=== PATIENT | female | born 1955 | race Caucasian/White ===

== ENCOUNTER 2016-03-14 14:10 | Inpatient (IN) | payer MEDICAID, OTHER ==
[~2016-03-14] VITALS: Ht 152.4 cm; Wt 57.0 kg
[2016-07-17] VITALS (11 sets, daily range): BP systolic 85–102; BP diastolic 23–71; PULSE 69–118; RESP 18–22; Ht 152.4 cm; Wt 57.0 kg
[2016-07-17] MEDS ORDERED: SIMV40TA2 PO (14:20)
--- NOTE | 2016-07-17 14:43 | HPN ---
Date/Time of Note Date/Time of Note DATE: 07/17/16 TIME: 14:42 Interval H&P Admission Note Pt. seen H&P reviewed: No system changes MARIO ALBERTO VEGA MD Jul 17, 2016 14:42
[2016-07-17] MEDS ORDERED: METHYLENE BLUE 10 MG/ML VIAL ONE (15:30)
[2016-07-17] MEDS ORDERED: MIDAZOLAM 1 MG/ML 2 ML INJ ONE (15:58)
[2016-07-17] MEDS ORDERED: morphine SULFATE/PF (10 MG/10 ML) INJ ONE (15:59)
[2016-07-17] MEDS ORDERED: MEPERIDINE 25 MG INJ IV PRN (17:00)
[2016-07-17] MEDS ORDERED: NALOXONE (0.4 MG/ML) INJ IV PRN (17:00)
[2016-07-17] MEDS ORDERED: HYDROmorphONE (0.2 MG/ML) 10ML SYG IV PRN ×2 (17:00)
[2016-07-17] MEDS ORDERED: ONDANSETRON 4 MG INJ IV PRN ×2 (17:00→21:00)
[2016-07-17] MEDS ORDERED: FENTAnyl 50 MCG/ML VIAL IV PRN (17:00)
[2016-07-17] MEDS ORDERED: PHENYLephrine (100 MCG/ML) 5ML SYG ONE (18:44)
[2016-07-17] MEDS ORDERED: THROMBIN 5000 UNIT VIAL ONE (19:11)
[2016-07-17] MEDS ORDERED: NEOSTIGMINE 3 MG/3 ML SYRINGE ONE (19:35)
[2016-07-17] MEDS ORDERED: LIDOCAINE 2% (SDV) 5 ML INJ ONE (19:35)
[2016-07-17] MEDS ORDERED: CEFAZOLIN 1 GM INJ ONE (19:35)
[2016-07-17] MEDS ORDERED: GLYCOPYRROLATE 0.4 MG INJ ONE (19:35)
[2016-07-17] MEDS ORDERED: metroNIDAZOLE 500 MG/NS (PMX) 100 ML IVPB ONE (19:35)
[2016-07-17] MEDS ORDERED: ROCURONIUM 50 MG INJ ONE (19:35)
[2016-07-17] MEDS ORDERED: ETOMIDATE 20 MG INJ ONE (19:35)
[2016-07-17] MEDS ORDERED: DEXAMETHASONE 4 MG/ML 1 ML INJ ONE (19:36)
[2016-07-17 20:58] LABS: ADD SCAN DIFF NO
[2016-07-17 20:59] LABS: BASOPHILS % 0.2 % (0.0-2.0); EOSINOPHILS # 0.1 10^3/ul (0.0-0.5); EOSINOPHILS % 0.9 % (0.0-7.0); HEMATOCRIT 30.8 % (37.0-47.0); HEMOGLOBIN 10.3 g/dl (12.0-16.0); LYMPHOCYTES # 2.6 10^3/ul (0.8-2.9); LYMPHOCYTES % 20.9 % (15.0-51.0); MEAN CORPUSCULAR HGB CONC 33.4 g/dl (32.0-37.0); MEAN CORPUSCULAR VOLUME 89.8 fl (82.0-101.0); MONOCYTE # 0.5 10^3/ul (0.3-0.9); MONOCYTES % 3.7 % (0.0-11.0); NEUTROPHIL # 9.2 10^3/ul (1.6-7.5); PLATELET COUNT 148 10^3/UL (140-415); RED BLOOD COUNT 3.43 10^6/ul (4.20-5.40); RED CELL DISTRIBUTION WIDTH 12.8 % (11.5-14.5); WHITE BLOOD COUNT 12.4 10^3/ul (4.8-10.8)
[2016-07-17] MEDS ORDERED: POTASSIUM CHLORIDE 20 MEQ in DEXTROSE 5%-LR 1,000 ML IV SCH (21:00)
[2016-07-17] MEDS ORDERED: morphine 2 MG INJ IV PRN (21:00)
[2016-07-17 21:08] LABS: ALBUMIN 2.4 g/dl (3.3-4.9)
[2016-07-17 21:09] LABS: INR 1.16; PROTIME 14.8 Sec (12.2-14.2); PT RATIO 1.2
[2016-07-17 21:10] LABS: BILIRUBIN,INDIRECT 0.8 mg/dl (0-1.1); BILIRUBIN,TOTAL 0.8 mg/dl (0.2-1.3); CREATININE 0.39 mg/dl (0.44-1.00); PARTIAL THROMBOPLASTIN TIME 25.5 Sec (25.0-35.0)
[2016-07-17 21:11] LABS: ALBUMIN/GLOBULIN RATIO 1.14; CALCIUM 8.5 mg/dl (8.4-10.2); POTASSIUM 2.4 mmol/L (3.5-5.1); TOTAL PROTEIN 4.5 g/dl (6.1-8.1)
[2016-07-17] MEDS ORDERED: POTASSIUM CHLORIDE 150 ML ONE (21:29)
[2016-07-17] MEDS: POTASSIUM CHLORIDE 50 ML IVPB PRN ×2 (21:40→21:41)
[2016-07-17] MEDS ORDERED: traMADol 50 MG TAB PO PRN (22:00)
[2016-07-17] MEDS: CEFAZOLIN 1 GM/50 ML (PMX) 50 ML IVPB SCH (22:11)
[2016-07-17] MEDS: D5-LR + KCL 20 MEQ 1,000 ML IV SCH (22:11)
[2016-07-17] MEDS: FAMOTIDINE 20 MG INJ IV SCH (22:16)
[2016-07-17] MEDS: traMADol 50 MG TAB PO PRN (22:55)
[2016-07-18] VITALS (39 sets, daily range): BP systolic 70–103; BP diastolic 34–64; PULSE 88–121; RESP 9–33
[2016-07-18] MEDS: D5-LR + KCL 20 MEQ 1,000 ML IV SCH ×5 (04:50→23:30)
[2016-07-18] MEDS: CEFAZOLIN 1 GM/50 ML (PMX) 50 ML IVPB SCH ×3 (05:49→21:57)
[2016-07-18 06:31] LABS: ADD SCAN DIFF NO
[2016-07-18 06:56] LABS: ALBUMIN 2.6 g/dl (3.3-4.9); POTASSIUM 3.8 mmol/L (3.5-5.1)
[2016-07-18 06:58] LABS: BILIRUBIN,INDIRECT 0.4 mg/dl (0-1.1); BILIRUBIN,TOTAL 0.4 mg/dl (0.2-1.3); CREATININE 0.47 mg/dl (0.44-1.00); INR 1.13; PROTIME 14.5 Sec (12.2-14.2); PT RATIO 1.1
[2016-07-18 06:59] LABS: ALBUMIN/GLOBULIN RATIO 1.23; CALCIUM 8.1 mg/dl (8.4-10.2); TOTAL PROTEIN 4.7 g/dl (6.1-8.1)
[2016-07-18 07:02] LABS: ABNORMAL IP MESSAGE 1; BASOPHILS % 0.1 % (0.0-2.0); HEMATOCRIT 34.7 % (37.0-47.0); HEMOGLOBIN 11.6 g/dl (12.0-16.0); LYMPHOCYTES # 0.4 10^3/ul (0.8-2.9); LYMPHOCYTES % 2.4 % (15.0-51.0); MEAN CORPUSCULAR HEMOGLOBIN 30.5 pg (29.0-33.0); MEAN CORPUSCULAR HGB CONC 33.4 g/dl (32.0-37.0); MEAN CORPUSCULAR VOLUME 91.3 fl (82.0-101.0); MEAN PLATELET VOLUME 10.8 fl (7.4-10.4); MONOCYTE # 0.4 10^3/ul (0.3-0.9); MONOCYTES % 2.5 % (0.0-11.0); NEUTROPHILS % 94.5 % (39.0-77.0); PLATELET COUNT 152 10^3/UL (140-415); RED CELL DISTRIBUTION WIDTH 13.6 % (11.5-14.5); WHITE BLOOD COUNT 16.9 10^3/ul (4.8-10.8)
--- NOTE | 2016-07-18 07:09 | CONS ---
Date/Time of Note Date/Time of Note DATE: 07/18/16 TIME: 07:08 Assessment/Plan Assessment/Plan Additional Assessment/Plan 1) POD #1 s/p LSH/BSO by ciera Farias - I suspect patient will be discharged tomorrow or the next day. At this point there is no medical reason that requires her to stay in the hospital. Barring a change in her medical condition, she may be safely discharged home when she is ready from a surgical standpoint. No medical intervention needed at this time. 2) Nausea, mild - Patient declines an antiemetic at this time; Thank you for allowing our team the pleasure of co-managing your patient. Consultation Date/Type/Reason Admit Date/Time Jul 17, 2016 at 13:31 Date of Consultation: Jul 18, 2016 Type of Consultation: Internal Medicine Reason for Consultation Post-Operative Patient, Routine Medical Evaluation and Management Referring Provider: MARIO ALBERTO VEGA MD Hx of Present Illness This is a 61 year old female with an unremarkable pastmedical history who was admitted to the hospital yesterday afternoon, as planned, and underwent a LSH/ BSO. Patient is sleeping comfortably in the ICU, her daughter is resting in a chair next to her. Patient is roused easily and has no complaints or concerns other than mild nausea, minimal surgical pain and wondering when she will be able to go home. She declines any medication for nausea and is not interested in any pain medication. I told patient that Dr. Garcia decide when she is ready to go home from a surgical standpoint. From a medical standpoint, she is ready to go home at any time. She has no fever, chills, headache and she has not vomited or had diarrhea. General: Admits: Denies: Fever, Chills Eyes: Admits: Denies: Blurry Vision, Double Vision HENT: Admits: Denies: Ear Pain/Pressure, Runny/Stuffy Nose, Sore Throat Cardiovascular: Admits: Denies: Chest Pain, Palpitations, Leg Swelling Pulmonary: Admits: Denies: Cough, Wheeze, Shortness of Breath Gastrointestinal: Admits: Abdominal Pain, Nausea, Denies: Vomiting, Diarrhea Urogenital: Admits: Denies: Burning with Urination, Urinary Frequency Musculoskeletal: Admits: Denies: Joint Pain, Joint Swelling, Muscle Pain Neurological: Admits: Denies: Headache, Dizziness, Numbness, Tingling, Shooting Pains Integumentary: Admits: Denies: Rash, Itch Past Medical History Medical History: no pertinent history Past Surgical History LSH/VSO on 07/17/16 Social History Smoking Status: Never smoker Exam/Review of Systems Vital Signs Vitals Vital Signs Date Time Temp Pulse Resp B/P Pulse Ox O2 Delivery O2 Flow Rate FiO2 07/18/16 06:00 100 24 95/55 96 Nasal Cannula 2.0 07/18/16 04:00 97.5 Intake and Output 07/17/16 07/17/16 07/18/16 15:00 23:00 07:00 Intake Total 3180 ml 1715 ml Output Total 1435 ml 575 ml Balance 1745 ml 1140 ml Exam General: 61 year old, Yoruba speaking woman, sleeping comfortably in bed reouses easily to her name, She is in no acute distress Eyes: Sclera White, EOMI HENT: Normocephalic/Atraumatic, External Ears/Nose Normal, Moist Mucus Membranes Neck: Supple, Trachea Midline Cardiovascular: Normal Rate, Normal Rhythm, Normal S1 and S2, No Murmur, No Extra Sounds Pulmonary: Clear to Auscultation Bilaterally, Normal Respiratory Effort, No Rales, Rhonchi or Wheezes Gastrointestinal: Normoactive Bowel Sounds, Soft, Mild Tendermess, no distentio., No Hepatosplenomegaly Appreciated, No Pulsatile Masses Urogenital: Deferred Musculoskeletal: Normal Muscle Bulk and Tone Neurological: CN II - XII Grossly Intact, Non-Focal, Speech Normal Integumentary: Normal Moisture and Temperature, Good Turgor, No Jaundice, No Rash Lymphatic: No Cervical Lymphadenopathy Psychiatric: Appropriate Mood and Affect, Good Eye Contact Results Result Diagram: 07/17/16205407/18/16 0530 Results 24 hrs Laboratory Tests Test 07/17/16 20:55 07/18/16 05:30 White Blood Count 12.4 H Red Blood Count 3.43 L Hemoglobin 10.3 L Hematocrit 30.8 L Mean Corpuscular Volume 89.8 Mean Corpuscular Hemoglobin 30.0 Mean Corpuscular Hemoglobin Concent 33.4 Red Cell Distribution Width 12.8 Platelet Count 148 Mean Platelet Volume 10.0 Neutrophils % 74.0 Lymphocytes % 20.9 Monocytes % 3.7 Eosinophils % 0.9 Basophils % 0.2 Nucleated Red Blood Cells % 0.0 Neutrophils # 9.2 H Lymphocytes # 2.6 Monocytes # 0.5 Eosinophils # 0.1 Basophils # 0.0 Nucleated Red Blood Cells # 0.0 Prothrombin Time 14.8 H 14.5 H Prothrombin Time Ratio 1.2 1.1 INR International Normalized Ratio 1.16 1.13 Activated Partial Thromboplast Time 25.5 Sodium Level 141 143 Potassium Level 2.4 *L 3.8 Chloride Level 102 106 Carbon Dioxide Level 30 25 Anion Gap 11 16 Blood Urea Nitrogen 8 7 Creatinine 0.39 L 0.47 Glucose Level 189 259 H Calcium Level 8.5 8.1 L Total Bilirubin 0.8 0.4 Direct Bilirubin 0.00 0.00 Indirect Bilirubin 0.8 0.4 Aspartate Amino Transf (AST/SGOT) 19 25 Alanine Aminotransferase (ALT/SGPT) 26 27 Alkaline Phosphatase 50 46 Total Protein 4.5 L 4.7 L Albumin 2.4 L 2.6 L Globulin 2.10 2.10 Albumin/Globulin Ratio 1.14 1.23 Medications Medications Current Medications Naloxone HCl (Narcan) 0.2 mg Q2M PRN IV FOR RESP RATE 8 OR LESS; Start at 17:00 Ondansetron HCl 4 mg 4 mg Q6H PRN IV NAUSEA AND/OR VOMITING Last administered on 07/17/16 21:41; Admin Dose 4 MG; Start 07/17/16 at 21:00 Cefazolin Sodium (Ancef 1 Gm/50 ml (Pmx)) 50 ml @ 100 mls/hr Q8 IVPB Last administered on 07/18/16 05:49; Admin Dose 100 MLS/HR; Start 07/17/16 at 22:00 ; Stop 07/18/16 at 23:00 Morphine Sulfate (morphine) 1 mg Q3H PRN IV PAIN; Start 07/17/16 at 21:00 Famotidine 20 mg 20 mg BID IV Last administered on 07/17/16 22:16; Admin Dose 20 MG; Start 07/17/16 at 22:00 Potassium Cl/ Dextrose/Lact Ringer's (D5-Lr + KCl 20 Meq) 1,000 ml @ 150 mls/ hr Q6H40M IV Last administered on 07/18/16 06:00; Admin Dose 150 MLS/HR; Start 07/17/16 at 22:00 Tramadol HCl (Ultram) 50 mg Q6H PRN PO PAIN Last administered on 07/17/16 22: 55; Admin Dose 50 MG; Start 07/17/16 at 22:00 STACY HYLTON 24, 2017 07:09
[2016-07-18] MEDS: FAMOTIDINE 20 MG INJ IV SCH ×2 (10:37→20:21)
--- NOTE | 2016-07-18 11:14 | PN ---
Date/Time of Note Date/Time of Note DATE: 07/18/16 TIME: 11:07 Assessment/Plan VTE Prophylaxis VTE Prophylaxis Intervention: SCD's Lines/Catheters IV Catheter Type (from Nrs): Peripheral IV Urinary Cath still in place: Yes Reason Cath still needed: other (indicate) Assessment/Plan Chief Complaint/Hosp Course Assessment and plan 1) PMB and prolapse : POD #1 s/p LSH/BSO by , stable -Continue postsurgical care, advance diet as per surgery recommendations [facility] to [facility] 2) hypokalemia, repleted 3) Nausea, mild Resolved We will continue monitor patient closely for recommendation management treatment as clinical course Plan to discharge home tomorrow if cleared by VENEER SORTER Problems: Subjective 24 Hr Interval Summary Free Text/Dictation Patient denies of any chest pain or shortness of breath Minimal abdominal discomfort at surgical site No nausea vomiting or diarrhea No BM or flatus Exam/Review of Systems Vital Signs Vitals Vital Signs Date Time Temp Pulse Resp B/P Pulse Ox O2 Delivery O2 Flow Rate FiO2 07/18/16 10:33 98 24 97 07/18/16 10:00 94/47 Room Air 07/18/16 08:00 98.1 07/18/16 06:00 2.0 Intake and Output 07/17/16 07/17/16 07/18/16 15:00 23:00 07:00 Intake Total 3180 ml 1715 ml Output Total 1435 ml 575 ml Balance 1745 ml 1140 ml Exam General: The patient is well-developed, Not in acute distress. HEENT: Atraumatic, normocephalic. The pupils are equal and round . Neck: Supple with full range of motion. Chest: Normal expansion of the thorax during inspiration Lungs: Clear to auscultation bilaterally Heart: Normal S1-S2, Regular rhythm and rate. Abdomen: Soft , nontender, nondistended , bowel sounds are present. Surgical site is dry and clean Extremities: Normal to inspection, no edema no cyanosis Neurologic: Normal mental status,The patient is awake, alert and oriented . Results Result Diagram: 07/18/16 0530 07/18/16 0830 Results 24 hrs Laboratory Tests Test 07/17/16 20:55 07/18/16 05:30 07/18/16 08:30 White Blood Count 12.4 H 16.9 #H Red Blood Count 3.43 L 3.80 L Hemoglobin 10.3 L 11.6 L Hematocrit 30.8 L 34.7 L Mean Corpuscular Volume 89.8 91.3 Mean Corpuscular Hemoglobin 30.0 30.5 Mean Corpuscular Hemoglobin Concent 33.4 33.4 Red Cell Distribution Width 12.8 13.6 Platelet Count 148 152 Mean Platelet Volume 10.0 10.8 H Neutrophils % 74.0 94.5 H Lymphocytes % 20.9 2.4 L Monocytes % 3.7 2.5 Eosinophils % 0.9 0.0 Basophils % 0.2 0.1 Nucleated Red Blood Cells % 0.0 0.0 Neutrophils # 9.2 H 16.0 H Lymphocytes # 2.6 0.4 L Monocytes # 0.5 0.4 Eosinophils # 0.1 0.0 Basophils # 0.0 0.0 Nucleated Red Blood Cells # 0.0 0.0 Prothrombin Time 14.8 H 14.5 H Prothrombin Time Ratio 1.2 1.1 INR International Normalized Ratio 1.16 1.13 Activated Partial Thromboplast Time 25.5 Sodium Level 141 143 Potassium Level 2.4 *L 3.8 4.3 Chloride Level 102 106 Carbon Dioxide Level 30 25 Anion Gap 11 16 Blood Urea Nitrogen 8 7 Creatinine 0.39 L 0.47 Glucose Level 189 259 H Calcium Level 8.5 8.1 L Total Bilirubin 0.8 0.4 Direct Bilirubin 0.00 0.00 Indirect Bilirubin 0.8 0.4 Aspartate Amino Transf (AST/SGOT) 19 25 Alanine Aminotransferase (ALT/SGPT) 26 27 Alkaline Phosphatase 50 46 Total Protein 4.5 L 4.7 L Albumin 2.4 L 2.6 L Globulin 2.10 2.10 Albumin/Globulin Ratio 1.14 1.23 Medications Medications Current Medications Naloxone HCl (Narcan) 0.2 mg Q2M PRN IV FOR RESP RATE 8 OR LESS; Start at 17:00 Ondansetron HCl 4 mg 4 mg Q6H PRN IV NAUSEA AND/OR VOMITING Last administered on 07/17/16 21:41; Admin Dose 4 MG; Start 07/17/16 at 21:00 Cefazolin Sodium (Ancef 1 Gm/50 ml (Pmx)) 50 ml @ 100 mls/hr Q8 IVPB Last administered on 07/18/16 05:49; Admin Dose 100 MLS/HR; Start 07/17/16 at 22:00 ; Stop 07/18/16 at 23:00 Morphine Sulfate (morphine) 1 mg Q3H PRN IV PAIN; Start 07/17/16 at 21:00 Famotidine 20 mg 20 mg BID IV Last administered on 07/18/16 10:37; Admin Dose 20 MG; Start 07/17/16 at 22:00 Potassium Cl/ Dextrose/Lact Ringer's (D5-Lr + KCl 20 Meq) 1,000 ml @ 100 mls/ hr Q10H IV Last administered on 07/18/16 06:00; Admin Dose 150 MLS/HR; Start 07/17/16 at 22:00 Tramadol HCl (Ultram) 50 mg Q6H PRN PO PAIN Last administered on 07/17/16 22: 55; Admin Dose 50 MG; Start 07/17/16 at 22:00 Hydroxyzine HCl (Atarax) 10 mg Q6H PRN PO ITCHING; Start 07/18/16 at 11:30; Status MARIA DOLORES DO MD Jul 18, 2016 11:14
[2016-07-18] MEDS ORDERED: hydrOXYzine HCL 10 MG TAB PO PRN (11:30)
[2016-07-18] MEDS ORDERED: SOD CHLORIDE 0.9% 1,000 ML IV ONE (13:00)
[2016-07-18] MEDS: traMADol 50 MG TAB PO PRN (19:33)
--- NOTE | 2016-07-18 20:23 | PN ---
Date/Time of Note Date/Time of Note DATE: 07/18/16 TIME: 20:16 Assessment/Plan VTE Prophylaxis VTE Prophylaxis Intervention: SCD's Lines/Catheters IV [facility] Peripheral IV Urinary Cath still in place: Yes Assessment/Plan Chief Complaint/Hosp Course symptomatic pelvic relaxation, ureteral stricture Problems: Assessment/Plan A- doing well other than some vertigo and not able OOB. Awaiting better bowel fct P- Mobilize and await bowel fct. If symptoms remain consider cardiac eval. Start bladder training and d/c a.m Subjective 24 Hr Interval Summary Free Text/Dictation S-Feels comfortable but slightly uneasy when OOB O- Resp- clear CVS- NSR Abd- soft nt clean Ext- nt no edema A- doing well other than some vertigo and not able OOB. Awaiting better bowel fct P- Mobilize and await bowel fct. If symptoms remain consider cardiac eval. Start bladder training and d/c a.m Exam/Review of Systems Vital Signs Vitals Vital Signs Date Time Temp Pulse Resp B/P Pulse Ox O2 Delivery O2 Flow Rate FiO2 07/18/16 18:00 99 15 98/49 98 Room Air 07/18/16 08:00 98.1 07/18/16 06:00 2.0 Intake and Output 07/17/16 07/17/16 07/18/16 15:00 23:00 07:00 Intake Total 3180 ml 1715 ml Output Total 1435 ml 575 ml Balance 1745 ml 1140 ml Results Result Diagram: 07/18/16 0530 07/18/16 0830 Results 24 hrs Laboratory Tests Test 07/17/16 20:55 07/18/16 05:30 07/18/16 08:30 White Blood Count 12.4 H 16.9 #H Red Blood Count 3.43 L 3.80 L Hemoglobin 10.3 L 11.6 L Hematocrit 30.8 L 34.7 L Mean Corpuscular Volume 89.8 91.3 Mean Corpuscular Hemoglobin 30.0 30.5 Mean Corpuscular Hemoglobin Concent 33.4 33.4 Red Cell Distribution Width 12.8 13.6 Platelet Count 148 152 Mean Platelet Volume 10.0 10.8 H Neutrophils % 74.0 94.5 H Lymphocytes % 20.9 2.4 L Monocytes % 3.7 2.5 Eosinophils % 0.9 0.0 Basophils % 0.2 0.1 Nucleated Red Blood Cells % 0.0 0.0 Neutrophils # 9.2 H 16.0 H Lymphocytes # 2.6 0.4 L Monocytes # 0.5 0.4 Eosinophils # 0.1 0.0 Basophils # 0.0 0.0 Nucleated Red Blood Cells # 0.0 0.0 Prothrombin Time 14.8 H 14.5 H Prothrombin Time Ratio 1.2 1.1 INR International Normalized Ratio 1.16 1.13 Activated Partial Thromboplast Time 25.5 Sodium Level 141 143 Potassium Level 2.4 *L 3.8 4.3 Chloride Level 102 106 Carbon Dioxide Level 30 25 Anion Gap 11 16 Blood Urea Nitrogen 8 7 Creatinine 0.39 L 0.47 Glucose Level 189 259 H Calcium Level 8.5 8.1 L Total Bilirubin 0.8 0.4 Direct Bilirubin 0.00 0.00 Indirect Bilirubin 0.8 0.4 Aspartate Amino Transf (AST/SGOT) 19 25 Alanine Aminotransferase (ALT/SGPT) 26 27 Alkaline Phosphatase 50 46 Total Protein 4.5 L 4.7 L Albumin 2.4 L 2.6 L Globulin 2.10 2.10 Albumin/Globulin Ratio 1.14 1.23 Medications Medications Current Medications Naloxone HCl (Narcan) 0.2 mg Q2M PRN IV FOR RESP RATE 8 OR LESS; Start at 17:00 Ondansetron HCl 4 mg 4 mg Q6H PRN IV NAUSEA AND/OR VOMITING Last administered on 07/17/16 21:41; Admin Dose 4 MG; Start 07/17/16 at 21:00 Cefazolin Sodium (Ancef 1 Gm/50 ml (Pmx)) 50 ml @ 100 mls/hr Q8 IVPB Last administered on 07/18/16 14:27; Admin Dose 100 MLS/HR; Start 07/17/16 at 22:00 ; Stop 07/18/16 at 23:00 Morphine Sulfate (morphine) 1 mg Q3H PRN IV PAIN; Start 07/17/16 at 21:00 Famotidine 20 mg 20 mg BID IV Last administered on 07/18/16 10:37; Admin Dose 20 MG; Start 07/17/16 at 22:00 Potassium Cl/ Dextrose/Lact Ringer's (D5-Lr + KCl 20 Meq) 1,000 ml @ 100 mls/ hr Q10H IV Last administered on 07/18/16 14:36; Admin Dose 100 MLS/HR; Start 07/17/16 at 22:00 Tramadol HCl (Ultram) 50 mg Q6H PRN PO PAIN Last administered on 07/18/16 19: 33; Admin Dose 50 MG; Start 07/17/16 at 22:00 Hydroxyzine HCl (Atarax) 10 mg Q6H PRN PO ITCHING Last administered on 14:33; Admin Dose 10 MG; Start 07/18/16 at 11:30 MARIO ALBERTO VEGA MD Jul 18, 2016 20:23
[2016-07-18] MEDS ORDERED: NITROGLYCERIN (SL) 0.4 MG TAB ONE (22:57)
[2016-07-18] MEDS: NITROGLYCERIN (SL) 0.4 MG TAB SL PRN ×2 (22:57→23:05)
[2016-07-18 23:29] LABS: POTASSIUM 3.1 mmol/L (3.5-5.1)
[2016-07-18 23:31] LABS: CREATININE 0.47 mg/dl (0.44-1.00)
[2016-07-18 23:32] LABS: CALCIUM 7.5 mg/dl (8.4-10.2)
[2016-07-18] MEDS: SOD CHLORIDE 0.9% 1,000 ML IV SCH (23:34)
[2016-07-18 23:37] LABS: D-DIMER 1544.16 ng/ml (<460)
[2016-07-18 23:44] LABS: TROPONIN-I 0.086 ng/ml (0.00-0.12)
[2016-07-18 23:50] LABS: ADD SCAN DIFF NO
--- NOTE | 2016-07-18 23:52 | EN ---
Date/Time of Note Date/Time of Note DATE: 07/18/16 TIME: 23:41 ER Progress Note CHEST PAIN Notified by RN that patient is having Central and Left CP and is feeling SOB. No Radiation. No Nausea. Her BP is chronically low currently 79/52 down to 69/ 38 , pulse 85. STAT EKG, D-DImer, BNP and Troponin I. She received NTG x 2 and put in Trendelenberg. She started to feel a little better. CP now at 6/10, was 8 /10. No cardiac history. POD #1 S/P LSH/BSO. No previous medical history or home meds. No EtOH, Tobacco or Street Drugs. First EKG shows no acute changes, but some non-specific T-wave changes. There appeared to be some ST-Depression on the monitor. It seemed to look worse as patient was feeling better. Second EKG shows no changes from the first. Bolus of NS was started at 500 cc/hor to tank her up, just in case she needs more NTG. Patient stabilized some, so after updating the family at bedside, I stepped out to write my note just outside of her room. I reviewed the chart, and see that her WBCs increased from 12.4 at 2200 on 07/17 to 16.9 at 0530 on 07/18, Neutrophils increasing from 74 to 96.5 respectively. I see no steroids on her orders, but her antibiotic was stopped. Patient has veen afebrile. I have added on a stat CBC. STACY HYLTON DO Jul 18, 2016 23:51
[2016-07-18 23:53] LABS: BASOPHILS % 0.2 % (0.0-2.0); EOSINOPHILS % 0.1 % (0.0-7.0); HEMATOCRIT 23.8 % (37.0-47.0); HEMOGLOBIN 8.2 g/dl (12.0-16.0); LYMPHOCYTES # 1.9 10^3/ul (0.8-2.9); LYMPHOCYTES % 14.2 % (15.0-51.0); MEAN CORPUSCULAR HEMOGLOBIN 31.1 pg (29.0-33.0); MEAN CORPUSCULAR HGB CONC 34.5 g/dl (32.0-37.0); MEAN CORPUSCULAR VOLUME 90.2 fl (82.0-101.0); MEAN PLATELET VOLUME 10.5 fl (7.4-10.4); MONOCYTE # 0.8 10^3/ul (0.3-0.9); MONOCYTES % 5.9 % (0.0-11.0); NEUTROPHIL # 10.4 10^3/ul (1.6-7.5); NEUTROPHILS % 79.2 % (39.0-77.0); PLATELET COUNT 128 10^3/UL (140-415); RED BLOOD COUNT 2.64 10^6/ul (4.20-5.40); RED CELL DISTRIBUTION WIDTH 13.7 % (11.5-14.5); WHITE BLOOD COUNT 13.2 10^3/ul (4.8-10.8)
[2016-07-19] VITALS (21 sets, daily range): BP systolic 70–134; BP diastolic 34–76; PULSE 87–109; RESP 0–27
--- NOTE | 2016-07-19 01:09 | EN ---
Date/Time of Note Date/Time of Note DATE: 07/19/16 TIME: 01:04 Event Note Medicine Medicine Event Note CHEST PAIN - this note was originally starte at 2347, but I noticed it ended up under an ER Event Note, so I changed it to a Medicine Event Note. Notified by RN that patient is having Central and Left CP and is feeling SOB. No Radiation. No Nausea. Her BP is chronically low currently 79/52 down to 69/ 38 , pulse 85. STAT EKG, D-DImer, BNP and Troponin I. She received NTG x 2 and put in Trendelenberg. She started to feel a little better. CP now at 6/10, was 8 /10. No cardiac history. POD #1 S/P LSH/BSO. No previous medical history or home meds. No EtOH, Tobacco or Street Drugs. First EKG shows no acute changes, but some non-specific T-wave changes. There appeared to be some ST-Depression on the monitor. It seemed to look worse as patient was feeling better. Second EKG shows no changes from the first. Bolus of NS was started at 500 cc/hor to tank her up, just in case she needs more NTG. Patient stabilized some, so after updating the family at bedside, I stepped out to write my note just outside of her room. I reviewed the chart, and see that her WBCs increased from 12.4 at 2200 on 07/17 to 16.9 at 0530 on 07/18, Neutrophils increasing from 74 to 96.5 respectively. I see no steroids on her orders, but her antibiotic was stopped. Patient has been afebrile. I have added on a stat CBC. Troponin came back elevated at 1544.16 (<460). Hgb low at 8.2, was 11.6 at 0530 on 07/18. No evidence of vaginal bleeding or bleeding from surgical incisions. 2 units pRBCs ordered. BP down to 70/41, HR = 94. Patient's CP already down to 1. RN told me she had a run of tachycardia yesterday to the 170s. RN spoke with Dr. Victorino brandon this time and he ordered blood products, 2 units pRBC, 2 units FFP and 1 unit PLT, and said the rest was "not my problem". My response to the RN upon hearing this was to say "it's ALL my problem". At 0120, patient has had almost a full liter bolus of NS and her BP is still 74/ 46, pulse . STAT CTA Chest to R/O PE and STAT CT Abd/Pelvis with IV Contrast has been ordered. The RN is going down to get the blood hanging before she goes to CT. STACY HYLTON DO Jul 19, 2016 01:09
[2016-07-19] MEDS: SOD CHLORIDE 0.9% 1,000 ML IV SCH ×3 (01:30→05:30)
[2016-07-19] MEDS ORDERED: SOD CHLORIDE 0.9% 100 ML ONE (01:57)
[2016-07-19] MEDS ORDERED: IOHEXOL 100 ML ONE (01:57)
--- NOTE | 2016-07-19 03:06 | RADRPT ---
PROCEDURE: CT angiogram of the chest, abdomen and pelvis with contrast. CLINICAL INDICATION: Chest and abdominal pain. TECHNIQUE: CT angiogram of the chest, abdomen and pelvis was performed on a multi-detector high-r [employer] CT scanner. Contiguous axial images were obtained during the dynamic injection of 100 cc of Omnipaque 350 intravenous contrast. Coronal and sagittal reformatted images were also obtained. 3-D reformatted images were also obtained. Images were reviewed on the PACS workstation. One or more of the following dose reduction techniques were used: - Automated exposure control. - Adjustment of the mA and/or kV according to patient size. - Use of iterative reconstruction technique. Exam CTD/vol = 10.31 mGy. Total exam DLP = 719.46 mGy-cm. COMPARISON: None. FINDINGS: Chest: The main pulmonary artery followed to the segmental divisions are well opacified. There is no filling defect or evidence of pulmonary embolism. The heart is normal in size. There is no naren cardial thickening or effusion. The aorta is of normal course and caliber without evidence of aneur ysm or dissection. There is no evidence of chest wall mass. The visualized thyroid is unremarkable. There are no enla rged axillary lymph nodes. There are no enlarged mediastinal or hilar lymph nodes by CT criteria. There is bilateral dependent atelectasis and small pleural effusions. There is no parenchymal nodul e or consolidation. The central tracheobronchial tree is within normal limits. Abdomen: The liver is normal in size. There is hypodense lesion within the left lobe of the liver measuring 1.6 x 1.5 cm. There is no dilatation of the biliary tree. The gallbladder is not distend ed. The spleen, pancreas and bilateral adrenal glands are within normal limits. Bilateral kidneys are normal in size with symmetric enhancement. There is no focal mass, hydronephrosis or hydrourete r. There is no retroperitoneal adenopathy. The abdominal aorta is of normal caliber without eviden ce of aneurysm or dissection. There are ventral abdominal wall sin consistent with recent surgery. There is no bowel obstruct ion. There is mild free air within the upper abdomen consistent with recent surgery. There is a mi ldly distended and fluid filled appendix posterior to the cecum measuring up to 9 mm in diameter. T here is no diverticulosis or diverticulitis. Pelvis: The bladder contains a Greer catheter. The patient status post recent hysterectomy with mo derate pelvic stranding and mild free fluid. There is no significant pelvic adenopathy. Evaluation of the osseous structures demonstrates no suspicious lytic or blastic lesion. IMPRESSION: No evidence of pulmonary embolism or aortic dissection. Mildly distended retrocecal appendix. Clinical correlation is needed to exclude early appendicitis. Small hypodense lesion within the liver could represent a cyst or hemangioma. Further evaluation ca n be made by ultrasound. Bilateral dependent atelectasis and small pleural effusions. Status post recent hysterectomy with moderate pelvic stranding and mild free fluid. Mild postoperative pneumoperitoneum. A call report was made to Dr. Mora at 03:00 a.m. .Oliver Escamilla MD, Date Time Electronically viewed and signed by .Oliver Escamilla MD, on 07/19/2016 03:05 .T/
[2016-07-19 05:55] LABS: ADD SCAN DIFF NO
[2016-07-19 06:05] LABS: BASOPHILS % 0.2 % (0.0-2.0); EOSINOPHILS % 0.2 % (0.0-7.0); HEMATOCRIT 29.3 % (37.0-47.0); LYMPHOCYTES % 15.2 % (15.0-51.0); MEAN CORPUSCULAR HEMOGLOBIN 31.3 pg (29.0-33.0); MEAN CORPUSCULAR HGB CONC 34.1 g/dl (32.0-37.0); MEAN CORPUSCULAR VOLUME 91.6 fl (82.0-101.0); MEAN PLATELET VOLUME 10.6 fl (7.4-10.4); MONOCYTE # 0.7 10^3/ul (0.3-0.9); MONOCYTES % 5.4 % (0.0-11.0); NEUTROPHIL # 10.4 10^3/ul (1.6-7.5); NEUTROPHILS % 78.6 % (39.0-77.0); PLATELET COUNT 114 10^3/UL (140-415); RED CELL DISTRIBUTION WIDTH 13.5 % (11.5-14.5); WHITE BLOOD COUNT 13.2 10^3/ul (4.8-10.8)
[2016-07-19 06:19] LABS: POTASSIUM 3.3 mmol/L (3.5-5.1)
[2016-07-19 06:21] LABS: CREATININE 0.42 mg/dl (0.44-1.00)
[2016-07-19 06:22] LABS: CALCIUM 7.6 mg/dl (8.4-10.2)
[2016-07-19 06:29] LABS: CK-MB 1.62 ng/ml (0.0-2.4)
[2016-07-19 07:21] LABS: TROPONIN-I 0.074 ng/ml (0.00-0.12)
[2016-07-19] MEDS: FAMOTIDINE 20 MG INJ IV SCH ×2 (09:36→20:43)
[2016-07-19] MEDS: POTASSIUM CHLORIDE 50 ML IVPB PRN ×4 (09:40→17:28)
[2016-07-19] MEDS: D5-LR + KCL 20 MEQ 1,000 ML IV SCH ×2 (10:33→20:51)
[2016-07-19 10:53] LABS: INR 1.01; PROTIME 13.3 Sec (12.2-14.2)
[2016-07-19 12:09] LABS: CK-MB 1.26 ng/ml (0.0-2.4)
[2016-07-19 12:12] LABS: TROPONIN-I 0.042 ng/ml (0.00-0.12)
--- NOTE | 2016-07-19 12:55 | RADRPT ---
Vent Rate: 99 bpm RR Interval: 0 msec DC Interval: 172 msec QRS Duration: 66 msec QT Interval: 332 msec QTC Interval: 426 msec P-R-T [place]: 32 - 48 - 52 degrees Normal sinus rhythm Normal ECG No previous tracing available for comparison Electronically Signed By: Grzegorz [place] [id number]
--- NOTE | 2016-07-19 12:57 | RADRPT ---
Vent Rate: 94 bpm RR Interval: 0 msec OR Interval: 148 msec QRS Duration: 68 msec QT Interval: 350 msec QTC Interval: 437 msec P-R-T [place]: 55 - 54 - 77 degrees Normal sinus rhythm Normal ECG No previous tracing available for comparison Electronically Signed By: Grzegorz [place] [id number]
--- NOTE | 2016-07-19 13:53 | PN ---
Date/Time of Note Date/Time of Note DATE: 07/19/16 TIME: 13:51 Assessment/Plan VTE Prophylaxis VTE Prophylaxis Intervention: SCD's Lines/Catheters IV [facility] (from [facility] Peripheral IV Urinary Cath still in place: No Assessment/Plan Chief Complaint/Hosp Course Assessment and plan 1) PMB and prolapse : POD #2 s/p LSH/BSO by , stable -Continue postsurgical care, advance diet as per surgery recommendations Transfer to [facility] [place] 2) hypokalemia, repleted 3) Nausea, mild Resolved 4) hypotension, resolved We will continue monitor patient closely for recommendation management treatment as clinical course Plan to discharge home tomorrow if cleared by [employer] Problems: Subjective 24 Hr Interval Summary Free Text/Dictation Patient continues to complain of having minimal abdominal discomfort No nausea vomiting diarrhea Tolerating clear liquid diet Exam/Review of Systems Vital Signs Vitals Vital Signs Date Time Temp Pulse Resp B/P Pulse Ox O2 Delivery O2 Flow Rate FiO2 07/19/16 12:00 93 07/19/16 10:00 16 129/75 96 Room Air 07/19/16 08:00 99.4 07/19/16 00:00 5.0 Intake and Output 07/18/16 07/18/16 07/19/16 15:00 23:00 07:00 Intake Total 650 ml 550 ml 2100 ml Output Total 1700 ml 2610 ml Balance 650 ml -1150 ml -510 ml Exam General: The patient is well-developed, Not in acute distress. HEENT: Atraumatic, normocephalic. The pupils are equal and round . Neck: Supple with full range of motion. Chest: Normal expansion of the thorax during inspiration Lungs: Clear to auscultation bilaterally Heart: Normal S1-S2, Regular rhythm and rate. Abdomen: Soft , minimally tender at surgical site, nondistended , bowel sounds are present. Surgical site is dry and clean Extremities: Normal to inspection, no edema no cyanosis Neurologic: Normal mental status,The patient is awake, alert and oriented . Results Result Diagram: 07/19/16 0500 07/19/16 0500 Results 24 hrs Laboratory Tests Test 07/18/16 23:08 07/19/16 05:00 07/19/16 10:00 07/19/16 11:40 White Blood Count 13.2 #H 13.2 H Red Blood Count 2.64 #L 3.20 #L Hemoglobin 8.2 #L 10.0 #L Hematocrit 23.8 #L 29.3 #L Mean Corpuscular Volume 90.2 91.6 Mean Corpuscular Hemoglobin 31.1 31.3 Mean Corpuscular Hemoglobin Concent 34.5 34.1 Red Cell Distribution Width 13.7 13.5 Platelet Count 128 L 114 L Mean Platelet Volume 10.5 H 10.6 H Neutrophils % 79.2 H 78.6 H Lymphocytes % 14.2 L 15.2 Monocytes % 5.9 5.4 Eosinophils % 0.1 0.2 Basophils % 0.2 0.2 Nucleated Red Blood Cells % 0.0 0.0 Neutrophils # 10.4 H 10.4 H Lymphocytes # 1.9 2.0 Monocytes # 0.8 0.7 Eosinophils # 0.0 0.0 Basophils # 0.0 0.0 Nucleated Red Blood Cells # 0.0 0.0 D-Dimer 1544.16 H D-Dimer Comment Sodium Level 141 142 Potassium Level 3.1 L 3.3 L Chloride Level 105 106 Carbon Dioxide Level 30 30 Anion Gap 9 # 9 Blood Urea Nitrogen 4 L 3 L Creatinine 0.47 0.42 L Glucose Level 104 # 118 Calcium Level 7.5 L 7.6 L Troponin I 0.086 0.074 0.042 Creatine Kinase 326 H 293 H Creatine Kinase Index 0.5 0.4 Creatinine Kinase MB (Mass) 1.62 1.26 Prothrombin Time 13.3 Prothrombin Time Ratio 1.0 INR International Normalized Ratio 1.01 Medications Medications Current Medications Naloxone HCl (Narcan) 0.2 mg Q2M PRN IV FOR RESP RATE 8 OR LESS; Start at 17:00 Ondansetron HCl (Zofran Inj) 4 mg Q6H PRN IV NAUSEA AND/OR VOMITING Last administered on 07/17/16 21:41; Admin Dose 4 MG; Start 07/17/16 at 21:00 Morphine Sulfate (morphine) 1 mg Q3H PRN IV PAIN; Start 07/17/16 at 21:00 Famotidine 20 mg 20 mg BID IV Last administered on 07/19/16 09:36; Admin Dose 20 MG; Start 07/17/16 at 22:00 Potassium Cl/ Dextrose/Lact Ringer's (D5-Lr + KCl 20 Meq) 1,000 ml @ 100 mls/ hr Q10H IV Last administered on 07/19/16 10:33; Admin Dose 100 MLS/HR; Start 07/17/16 at 22:00 Tramadol HCl (Ultram) 50 mg Q6H PRN PO PAIN Last administered on 07/18/16 19: 33; Admin Dose 50 MG; Start 07/17/16 at 22:00 Hydroxyzine HCl (Atarax) 10 mg Q6H PRN PO ITCHING Last administered on 14:33; Admin Dose 10 MG; Start 07/18/16 at 11:30 Nitroglycerin (Nitroglycerin (Sl Tab) 0.4 Mg) 1 tab Q5M PRN SL ANGINA Last administered on 07/18/16 23:05; Admin Dose 1 TAB; Start 07/18/16 at 23:30 MARIA DOLORES ALEXANDER MD Jul 19, 2016 13:53
--- NOTE | 2016-07-19 18:15 | OPR ---
Date/Time of Note Date/Time of Note DATE: 07/19/16 TIME: 18:14 Operative Report Free Text/Dictation OPERATIVE REPORT [facility] Name: [facility] Date: 07/17/16 Preoperative Diagnosis: 1-Uterine/vaginal prolapse 1-Vkmd-acnsveevyn bleeding 3-Possible rectocele Postoperative Diagnosis: 1- Same with bilateral ureteral distortion 2- Extensive pelvic adhesions 3- Retroperitoneal/presacral hypervascularity Procedures: 1- Laparoscopic supracervical hysterectomy with bilateral salpingoophorectomy 2- Bilateral ureteral dissection with repositioning 3- Retroperitoneal uterine artery ligation 4- Cervical suspension: cervical vaginal anterior colpopexy; anterior sacral ligament suspension 5- Minilaparotomy Surgeon: Dr. Gleason Picker: Dr. Carpio Anesthesia: General Indications for procedures The patient was and 60- year old female with symptomatic pelvic relaxation and uterine prolapse level 3 along with persistent PMB. Therefore an LSH/BSO with was undertaken with a frozen section to exclude the need to remove the cervix, Name: [facility] and thus a cervical suspension to the anterior sacral ligament with the patient being informed of risks and benefits and all options. An EUA would then be performed and a posterior repair considered. Findings and Summary After exploration we noted an inflamed uterus consistent with prolapse and hypervascularity distorting the retroperitoneal anatomy with the adnexia densely adherent to the sidewalls. Due to the inflamed peritoneum and distorted anatomy within the retroperitoneum it was necessary that a bilateral ureteral dissection and repositioning be performed. The LSH/BSO was then completed uneventfully and the specimen removed with a minilaparotomy, after which the extent of prolapse and pelvic relaxation required that a suspension of the cervix to the anterior sacral ligament be completed. Due to vasculature distortion and hypervascularity the uterine arteries were ligated ligation adjacent to the hypogastric artery and the suspension completed thru the aforementioned minilaparotomy. Subsequently on EUA the cervical suspension was adequate with minimal rectocele and so the posterior repair was deferred. Findings and Procedure: After being prepped and draped in the usual manner examination under anesthesia confirmed prolapse and a somewhat narrow vagina and minimal pelvic relaxation. Therefore a 5-millimeter trocar was placed cephlad to the umbilicus without incident. Subsequently, we insufflated and placed two 5 millimeter trocars laterally and a 12 millimeter trocar suprapubically. At this time significant pelvic adhesions were lysed with sharp dissection and the Omni when able. At this time, the pelvis was inspected and we noted a medium globular uterus with evidence of edematous peritoneum from prolapse along with edema of the adjacent pelvic peritoneum with the adnexia densely adherent to the pelvic Name: [facility] sidewalls distorting the anatomy of the ureters bilaterally with the bladder peritoneum also distorted. Because a supracervical laparoscopic hysterectomy with bilateral salpingoophorectomy was needed to maximize exposure and suspend the cervix and because the retroperitoneal anatomy was distorted it was necessary to maximize the safety and hemostasis while preventing any possibility of ureteral injury by first perform a ureteral dissection with repositioning bilaterally, as a separate procedure, so that the intended procedure could be completed without complication. Hence the ureteral dissection with repositioning was completed. The right round ligament was transected with a Thunderbeat and the retroperitoneum opened parallel to the infundibulo-pelvic (IP) ligament with Thunderbeat and Omni. The ureter was dissected away from the peritoneum with adjacent pathology and repositioned with great care using the endo-dissector and Omni tip bluntly as well as for hemostasis. This process was carried out throughout the ureteral length in the pelvis and it peristalsed normally once repositioned. We then isolated the uterine artery and vein adjacent to the ureter and hemoclipped the vessels to assure hemostasis due to hypervascularity and anatomy precluding access to the uterine vasculature adjacent to the lower uterine segment due inflammation and the prolapse. Subsequently the right ureter was further mobilized and the presacral space partly developed from the right with electrocautery and blunt dissection using the Omni, after which a space was placed in the broad ligament and the IP-ligament desiccated and transected with the Thunderbeat. Subsequently, the left round ligament was transected with a Thunderbeat and the retroperitoneum opened parallel to the infundibulo-pelvic (IP) ligament with a an Omni. The ureteral dissection with repositioning was undertaken. The ureter was dissected away from the peritoneum with adjacent adnexia and repositioned with care using the endo-dissector and Omni as accomplished contralaterally. This process was carried out throughout the ureteral length in the pelvis and it peristalsed normally once repositioned. We then isolated the uterine artery and vein adjacent to the [facility] and hemoclipped the vessels to assure hemostasis as anatomy precluding access to the uterine vasculature adjacent to the lower uterine segment required this approach. Subsequently with the ureter visualized the left IP- ligament was desiccated and transected with the Thunderbeat. At this time a corkscrew was placed in the aforementioned distorted uterus and the bladder flap was developed with care with the Omni and the integrity of the bladder was confirmed by instillation of methylene blue. The right uterine artery was transected with a Thunderbeat perpendicular to the distal lower uterine segment and the Cardinal ligament and utero-sacral ligament were both transected with a Thunderbeat parallel to the lower uterine segment and cervix via the contralateral trocar site. An identical series of steps were taken on the left side. Hence, the uterus was removed from the cervix with the Thunderbeat and hemostasis confirmed. The cervix and the endocervical canal were thoroughly ablated with the argon beam employment recruiter. The adnexia were from the uterus with and the Omni and the uterus was then removed with a minilaparotomy. The 12-millimeter trocar site was minimally extended to 4-5 cm midline to a minilaparotomy with sharp dissection and an electrocautery and uterus was then removed without morcellation and the adnexia removed separately using Omar clamps, with all tissue accounted for. There was no cancer on frozen section. The incision was partly closed with interrupted 0- Vicryl suture, after which the 12-millimeter trocar was reinserted. The cervix was ablated with the argon beam employment recruiter. Some bleeding was addressed with the Omni as needed. A space was further developed in the retroperitoneum with the ureter and the serosa visualized and the presacral space developed with the Omni adjacent to the sacrum for hemostasis, with significant oozing due to a large presacral space venous plexus. Hence, aforementioned minilaparotomy was used after which the presacral space was addressed with the Omni and argon mcbride employment recruiter as well as interrupted 3-0 Prolene suture, after which hemostasis was adequate and a Marlex graft material was secured in place with 2-0 Prolene suture as the Name: [facility] Endo-tack was not available, and hemostatic material was placed as well. The Marlex mesh was then brought through the mesentery and secured to the cervix with multiple interrupted 2-0 Prolene suture. After irrigating and assuring hemostasis the 12 millimeter trocar was removed and the fascia was closed with 0 -vicryl using an endo-close devise. The gas was removed and the skin of all sites then closed with a deeper layer of 2-0 Monocryl suture for the minilaparotomy and 4-0 skin sin for the skinThe patient tolerated the procedure well and left the operating room in good condition with 600cc blood loss. Mario Alberto Gleason M.D. MARIO ALBERTO GLEASON MD Jul 19, 2016 18:15
--- NOTE | 2016-07-19 18:19 | PN ---
Date/Time of Note Date/Time of Note DATE: 07/19/16 TIME: 18:16 Assessment/Plan VTE Prophylaxis VTE Prophylaxis Intervention: SCD's Lines/Catheters IV [facility] Type (from [facility]): Peripheral IV Urinary Cath still in place: No Assessment/Plan Chief Complaint/Hosp Course symptomatic pelvic relaxation, ureteral stricture Problems: Assessment/Plan A- doing well P- Mobilize and adv diet. Greer removed. Note only enzyme elevated probably due to pelvic muscle trauma inevitable during surgery, not cardiac Subjective 24 Hr Interval Summary Free Text/Dictation S-Feels overall better and + flatus O- Resp- clear CVS- NSR Abd- soft nt clean Ext- nt no edema A- doing well P- Mobilize and adv diet. Greer removed. Note only enzyme elevated probably due to pelvic muscle trauma inevitable during surgery, not cardiac Exam/Review of Systems Vital Signs Vitals Vital Signs Date Time Temp Pulse Resp B/P Pulse Ox O2 Delivery O2 Flow Rate FiO2 07/19/16 15:35 98.7 84 18 121/61 96 07/19/16 14:00 Room Air 07/19/16 00:00 5.0 Intake and Output 07/18/16 07/18/16 07/19/16 15:00 23:00 07:00 Intake Total 650 ml 550 ml 2100 ml Output Total 1700 ml 2610 ml Balance 650 ml -1150 ml -510 ml Results Result Diagram: 07/19/16 0500 07/19/16 1554 Results 24 hrs Laboratory Tests Test 07/18/16 23:08 07/19/16 05:00 07/19/16 10:00 07/19/16 11:40 White Blood Count 13.2 #H 13.2 H Red Blood Count 2.64 #L 3.20 #L Hemoglobin 8.2 #L 10.0 #L Hematocrit 23.8 #L 29.3 #L Mean Corpuscular Volume 90.2 91.6 Mean Corpuscular Hemoglobin 31.1 31.3 Mean Corpuscular Hemoglobin Concent 34.5 34.1 Red Cell Distribution Width 13.7 13.5 Platelet Count 128 L 114 L Mean Platelet Volume 10.5 H 10.6 H Neutrophils % 79.2 H 78.6 H Lymphocytes % 14.2 L 15.2 Monocytes % 5.9 5.4 Eosinophils % 0.1 0.2 Basophils % 0.2 0.2 Nucleated Red Blood Cells % 0.0 0.0 Neutrophils # 10.4 H 10.4 H Lymphocytes # 1.9 2.0 Monocytes # 0.8 0.7 Eosinophils # 0.0 0.0 Basophils # 0.0 0.0 Nucleated Red Blood Cells # 0.0 0.0 D-Dimer 1544.16 H D-Dimer Comment Sodium Level 141 142 Potassium Level 3.1 L 3.3 L Chloride Level 105 106 Carbon Dioxide Level 30 30 Anion Gap 9 # 9 Blood Urea Nitrogen 4 L 3 L Creatinine 0.47 0.42 L Glucose Level 104 # 118 Calcium Level 7.5 L 7.6 L Troponin I 0.086 0.074 0.042 Creatine Kinase 326 H 293 H Creatine Kinase Index 0.5 0.4 Creatinine Kinase MB (Mass) 1.62 1.26 Prothrombin Time 13.3 Prothrombin Time Ratio 1.0 INR International Normalized Ratio 1.01 Test 07/19/16 15:54 Potassium Level 3.4 L Medications Medications Current Medications Naloxone HCl (Narcan) 0.2 mg Q2M PRN IV FOR RESP RATE 8 OR LESS; Start at 17:00 Ondansetron HCl (Zofran Inj) 4 mg Q6H PRN IV NAUSEA AND/OR VOMITING Last administered on 07/17/16 21:41; Admin Dose 4 MG; Start 07/17/16 at 21:00 Morphine Sulfate (morphine) 1 mg Q3H PRN IV PAIN; Start 07/17/16 at 21:00 Famotidine 20 mg 20 mg BID IV Last administered on 07/19/16 09:36; Admin Dose 20 MG; Start 07/17/16 at 22:00 Potassium Cl/ Dextrose/Lact Ringer's (D5-Lr + KCl 20 Meq) 1,000 ml @ 100 mls/ hr Q10H IV Last administered on 07/19/16 10:33; Admin Dose 100 MLS/HR; Start 07/17/16 at 22:00 Tramadol HCl (Ultram) 50 mg Q6H PRN PO PAIN Last administered on 07/18/16 19: 33; Admin Dose 50 MG; Start 07/17/16 at 22:00 Hydroxyzine HCl (Atarax) 10 mg Q6H PRN PO ITCHING Last administered on 14:33; Admin Dose 10 MG; Start 07/18/16 at 11:30 Nitroglycerin (Nitroglycerin (Sl Tab) 0.4 Mg) 1 tab Q5M PRN SL ANGINA Last administered on 07/18/16t 23:05; Admin Dose 1 TAB; Start 07/18/16 at 23:30 Atorvastatin Calcium 20 mg 20 mg DAILY@21 PO ; Start 07/19/16 at 21:00 Potassium Chloride/Sodium Chloride (KCl/NS) 110 ml @ 55 mls/hr ONCE ONCE IVPB ; Start 07/19/16 at 18:30; Stop 07/19/16 at 20:29 MARIO ALBERTO VEGA MD Jul 19, 2016 18:19
[2016-07-19] MEDS ORDERED: POTASSIUM CHLORIDE 20 MEQ in SOD CHLORIDE 0.9% 100 ML IVPB ONE (18:30)
[2016-07-19] MEDS ORDERED: ATORVASTATIN 20 MG TAB PO SCH (21:00)
[2016-07-20] MEDS ORDERED: LORAZEPAM 2 MG INJ IV ONE (04:30)
[2016-07-20] MEDS ORDERED: LORAZEPAM 0.5 MG TAB PO PRN (04:30)
[2016-07-20] MEDS: D5-LR + KCL 20 MEQ 1,000 ML IV SCH ×2 (04:43→16:36)
[2016-07-20 04:54] VITALS: BP 107/59; RESP 18
[2016-07-20 08:38] LABS: ADD SCAN DIFF NO
[2016-07-20 08:42] LABS: BASOPHIL # 0.1 10^3/ul (0.0-0.1); BASOPHILS % 0.6 % (0.0-2.0); EOSINOPHILS # 0.3 10^3/ul (0.0-0.5); EOSINOPHILS % 2.7 % (0.0-7.0); HEMATOCRIT 35.4 % (37.0-47.0); HEMOGLOBIN 12.1 g/dl (12.0-16.0); LYMPHOCYTES # 2.2 10^3/ul (0.8-2.9); LYMPHOCYTES % 21.5 % (15.0-51.0); MEAN CORPUSCULAR HEMOGLOBIN 30.8 pg (29.0-33.0); MEAN CORPUSCULAR HGB CONC 34.2 g/dl (32.0-37.0); MEAN CORPUSCULAR VOLUME 90.1 fl (82.0-101.0); MEAN PLATELET VOLUME 9.9 fl (7.4-10.4); MONOCYTE # 0.6 10^3/ul (0.3-0.9); NEUTROPHIL # 7.1 10^3/ul (1.6-7.5); NEUTROPHILS % 68.9 % (39.0-77.0); PLATELET COUNT 137 10^3/UL (140-415); RED BLOOD COUNT 3.93 10^6/ul (4.20-5.40); RED CELL DISTRIBUTION WIDTH 14.1 % (11.5-14.5); WHITE BLOOD COUNT 10.2 10^3/ul (4.8-10.8)
[2016-07-20 09:15] LABS: POTASSIUM 3.3 mmol/L (3.5-5.1)
[2016-07-20 09:17] LABS: CREATININE 0.44 mg/dl (0.44-1.00)
[2016-07-20 09:18] LABS: CALCIUM 8.1 mg/dl (8.4-10.2); MAGNESIUM 1.9 mg/dl (1.7-2.5)
[2016-07-20] MEDS: FAMOTIDINE 20 MG INJ IV SCH (09:27)
[2016-07-20 09:30] VITALS: BP 126/69; RESP 20
--- NOTE | 2016-07-20 11:07 | PDOCDIS ---
Discharge Instructions CONDITION Patient Condition: Good HOME CARE INSTRUCTIONS: Special Diet: Soft diet and advance to regular diet ACTIVITY: Activity Restrictions: Slowly Increase Activity Rest between Activity Avoid heavy lifting Avoid Heavy Housework Activity Restrictions Comment: Light activity and do not lift anything heavier than 15 pounds 4 weeks FOLLOW UP/APPOINTMENTS Appointments Follow up with [facility] [facility] oncology as outpatient MARIA DOLORES ALEXANDER MD Jul 20, 2016 11:07
[2016-07-20] MEDS ORDERED: DOCU-144 PO (11:19)
[2016-07-20] MEDS ORDERED: OMEP20CA16 PO (11:19)
[2016-07-20] MEDS ORDERED: ONDA4TAB8 PO (11:19)
[2016-07-20] MEDS ORDERED: HYDR-3010 PO (11:19)
[2016-07-20] MEDS ORDERED: CEPH500C PO (11:40)
[2016-07-20] MEDS: POTASSIUM CHLORIDE (SR) 20 MEQ TAB PO SCH ×2 (12:11→17:20)
[2016-07-20] MEDS ORDERED: DOCUSATE SODIUM 100 MG CAP PO SCH (14:30)
--- NOTE | 2016-07-20 16:04 | PN ---
Date/Time of Note Date/Time of Note DATE: 07/20/16 TIME: 15:53 Assessment/Plan VTE Prophylaxis VTE Prophylaxis Intervention: SCD's Lines/Catheters IV Catheter Type (from Nrs): Peripheral IV Urinary Cath still in place: Yes Assessment/Plan Chief Complaint/Hosp Course symptomatic pelvic relaxation, ureteral stricture Problems: Assessment/Plan A- doing well P- Mobilize and when ambulatory discharge Subjective 24 Hr Interval Summary Free Text/Dictation S-Feels overall better and + flatus and BM and eats well O- Resp- clear CVS- NSR Abd- soft nt clean Ext- nt no edema A- doing well P- Mobilize and as soon as ambulatory consider d/c Exam/Review of Systems Vital Signs Vitals Vital Signs Date Time Temp Pulse Resp B/P Pulse Ox O2 Delivery O2 Flow Rate FiO2 07/20/16 09:30 98.6 89 20 126/69 95 07/19/16 14:00 Room Air 07/19/16 00:00 5.0 Intake and Output 07/19/16 07/19/16 07/20/16 15:00 23:00 07:00 Intake Total 1530 ml 640 ml 1200 ml Output Total 1850 ml 800 ml Balance -320 ml -160 ml 1200 ml Results Result Diagram: 07/20/16 0815 07/20/16 0815 Results 24 hrs Laboratory Tests Test 07/19/16 15:54 07/20/16 08:15 Potassium Level 3.4 L 3.3 L White Blood Count 10.2 # Red Blood Count 3.93 #L Hemoglobin 12.1 # Hematocrit 35.4 #L Mean Corpuscular Volume 90.1 Mean Corpuscular Hemoglobin 30.8 Mean Corpuscular Hemoglobin Concent 34.2 Red Cell Distribution Width 14.1 Platelet Count 137 #L Mean Platelet Volume 9.9 Neutrophils % 68.9 Lymphocytes % 21.5 Monocytes % 6.0 Eosinophils % 2.7 Basophils % 0.6 Nucleated Red Blood Cells % 0.0 Neutrophils # 7.1 Lymphocytes # 2.2 Monocytes # 0.6 Eosinophils # 0.3 Basophils # 0.1 Nucleated Red Blood Cells # 0.0 Sodium Level 135 Chloride Level 103 Carbon Dioxide Level 29 Anion Gap 6 L Blood Urea Nitrogen 4 L Creatinine 0.44 Glucose Level 120 Calcium Level 8.1 L Magnesium Level 1.9 Medications Medications Current Medications Naloxone HCl (Narcan) 0.2 mg Q2M PRN IV FOR RESP RATE 8 OR LESS; Start at 17:00 Ondansetron HCl (Zofran Inj) 4 mg Q6H PRN IV NAUSEA AND/OR VOMITING Last administered on 07/17/16 21:41; Admin Dose 4 MG; Start 07/17/16 at 21:00 Morphine Sulfate (morphine) 1 mg Q3H PRN IV PAIN Last administered on 09:28; Admin Dose 1 MG; Start 07/17/16 at 21:00 Famotidine 20 mg 20 mg BID IV Last administered on 07/20/16 09:27; Admin Dose 20 MG; Start 07/17/16 at 22:00 Potassium Cl/ Dextrose/Lact Ringer's (D5-Lr + KCl 20 Meq) 1,000 ml @ 100 mls/ hr Q10H IV Last administered on 07/20/16 04:43; Admin Dose 100 MLS/HR; Start 07/17/16 at 22:00 Tramadol HCl (Ultram) 50 mg Q6H PRN PO PAIN Last administered on 07/18/16 19: 33; Admin Dose 50 MG; Start 07/17/16 at 22:00 Hydroxyzine HCl (Atarax) 10 mg Q6H PRN PO ITCHING Last administered on 14:33; Admin Dose 10 MG; Start 07/18/16 at 11:30 Nitroglycerin (Nitroglycerin (Sl Tab) 0.4 Mg) 1 tab Q5M PRN SL ANGINA Last administered on 07/18/16 23:05; Admin Dose 1 TAB; Start 07/18/16 at 23:30 Atorvastatin Calcium (Lipitor) 20 mg DAILY@21 PO Last administered on 20:44; Admin Dose 20 MG; Start 07/19/16 at 21:00 Lorazepam (Ativan) 0.5 mg HS PRN PO INSOMNIA; Start 07/20/16 at 04:30 Potassium Chloride (Klor-Con 20) 40 meq Q4H PO Last administered on 07/20/16 12:11; Admin Dose 40 MEQ; Start 07/20/16 at 12:00; Stop 07/20/16 at 16:01 Docusate Sodium (Colace) 100 mg DAILY PO Last administered on 07/20/16 14:52; Admin Dose 100 MG; Start 07/20/16 at 14:30 MARIO ALBERTO VEGA MD Jul 20, 2016 16:04
--- NOTE | 2016-07-20 18:24 | DS ---
DATE OF ADMISSION: 07/17/2016 DATE OF DISCHARGE: 07/20/2016 CONSULTATIONS: Medical team. DISCHARGE DIAGNOSES: 1. Urine/vaginal prolapse. 2. Postmenopausal bleeding. 3. Retroperitoneal/presacral hypervascularity. 4. Extensive pelvic adhesions. 5. Postop day #3 status post hysterectomy and bilateral salpingo-oophorectomy by nicholas Wallace. 6. Hypokalemia, repleted. 7. Hypotension, resolved. 8. Intractable nausea and vomiting, resolved. PROCEDURES: 1. Laparoscopic supracervical hysterectomy, bilateral salpingo-oophorectomy. 2. Bilateral ureteral dissection with repositioning. 3. Retroperitoneal uterine artery ligation. 4. Cervical suspension, cervical vaginal colpopexy, anterior sacral ligament suspension. 5. Mini laparotomy. HOSPITAL COURSE: This is a pleasant 61-year-old female with symptomatic pelvic relaxation, uterine prolapse, level III, along with persistent postmenopausal bleeding. She was seen and evaluated as o utpatient by Dr. Vega and, after discussing the mode of the treatment and surgical and medical m anagement, the patient decided to proceed with surgical intervention. After discussing the risk and the benefits of surgery, it was agreed to proceed with LSH/BSO. The patient was admitted on 2016 and had laparoscopic supracervical hysterectomy, bilateral salpingo-oophorectomy, bilateral ure teral dissection with repositioning, retroperitoneal uterine artery ligation, cervical suspension, c ervical vaginal anterior colpopexy, and anterior sacral ligament suspension. The patient tolerated the procedure well and was taken to recovery room. The patient was found to be hypokalemic with pot assium of 2.4, was admitted to ICU. Potassium was repleted via potassium protocol. The patient was also placed on IV antibiotics via Ancef and her WBC has been improving. Today, her WBC is 10.2. H er potassium has been evaluated on a daily basis. Her potassium has been repleted today, potassium 3.3, and will be repleted with IV potassium prior to discharge. Her vitals were found to be hypoten sive during the course of the hospitalization with the lowest of 78/37. The patient was continued o n aggressive IV fluid. Her EKG was obtained, which showed normal sinus rhythm, normal EKG, ____ pre vious ____. Her CTA of the chest showed no evidence of PE or aortic dissection, mildly distended re ctocele appendix, small hypodense lesion within the liver representing cyst or hemangioma, bilateral dependent atelectasis and small pleural effusion, status recent hysterectomy, and moderate pelvic s tranding, mild free fluid, mild postoperative pneumoperitoneum. Today, patient has been able to olesya erate her oral intake. Her vitals have been stable with temperature of 98.6, pulse 89, respiration 20, blood pressure 126/60, oxygen saturation 95%. The patient has had positive bowel movement, has been able to tolerate her oral intake. Her labs, WBC is 10.2, hemoglobin 12.1, hematocrit 35.4, ana telet 137. Sodium 135, potassium 3.3, chloride 103, bicarbonate 21, BUN 4, creatinine 0.44, glucose 120. Magnesium 1.9. CONDITION AT TIME OF DISCHARGE: Stable. The patient will be evaluated by HELMET BINDER surgery prior to disc harge. Dictated By: MARIA DOLORES ALEXANDER MD PN/NTS Conf#: [id number] DID#: [id number] CC: MARIO ALBERTO VEGA MD;*EndCC*
[2016-07-20] MEDS ORDERED: FAMOTIDINE 20 MG TAB PO SCH (21:00)
== END 2016-07-20 18:00 | disposition home or self-care (01) | DRG 743 ==
LOC: REC 07-17 13:31 → ICU 07-17 20:23 → MS1 07-19 15:00
PROC: 0UT74ZZ Resection of Bilateral Fallopian Tubes, Percutaneous Endoscopic Approach (ICD-10-PCS; 2016-07-17)
PROC: 0UT24ZZ Resection of Bilateral Ovaries, Percutaneous Endoscopic Approach (ICD-10-PCS; 2016-07-17)
PROC: 0TS84ZZ Reposition Bilateral Ureters, Percutaneous Endoscopic Approach (ICD-10-PCS; 2016-07-17)
PROC: 0USGXZZ Reposition Vagina, External Approach (ICD-10-PCS; 2016-07-17)
PROC: 0JUC0JZ Supplement of Pelvic Region Subcutaneous Tissue and Fascia with Synthetic Substitute, Open Approach (ICD-10-PCS; 2016-07-17)
PROC: 0W3J4ZZ Control Bleeding in Pelvic Cavity, Percutaneous Endoscopic Approach (ICD-10-PCS; 2016-07-17)
PROC: 30233N1 Transfusion of Nonautologous Red Blood Cells into Peripheral Vein, Percutaneous Approach (ICD-10-PCS; 2016-07-17)
PROC: 30233K1 Transfusion of Nonautologous Frozen Plasma into Peripheral Vein, Percutaneous Approach (ICD-10-PCS; 2016-07-17)
PROC: 0UT94ZZ Resection of Uterus, Percutaneous Endoscopic Approach (ICD-10-PCS; principal; 2016-07-17 15:00)
DX: N95.0 Postmenopausal bleeding (principal); I95.9 Hypotension, unspecified; N81.4 Uterovaginal prolapse, unspecified; E87.6 Hypokalemia; R11.2 Nausea with vomiting, unspecified; N13.5 Crossing vessel and stricture of ureter without hydronephrosis; N81.89 Other female genital prolapse; R07.9 Chest pain, unspecified; R06.02 Shortness of breath
CPT/HCPCS: 36430; 71275; 74177; 80048; 80053; 82550; 82553; 83735; 84132; 84484; 85025; 85378; 85610; 85730; 86850; 86900; 86901; 86920; 87081; 88307; 88331; 93005; C1781; J0690; J1100; J2060; J2250; J2270; J2274; J2370; J2405; J2710; J3010; J3480; J7030; P9016; P9059; Q9967

== ENCOUNTER → 2018-09-28 | Day surgery (SDC) | payer OTHER ==
--- NOTE | 2018-09-27 14:56 | PREOPHP ---
DATE OF ADMISSION: 09/28/2018 HISTORY OF PRESENT ILLNESS: This 63-year-old patient is admitted for elective pterygium excision of the right eye. The patient has had increasing growth of pterygium on the surface of the right eye which is causing recurrent redness and irritation despite conservative treatment. The patient un derwent a pterygium excision of the left eye more than 10 years ago. The patient's systemic history is positive for hypercholesterolemia. CURRENT MEDICATIONS: Include: 1. Simvastatin. 2. Artificial Tears. ALLERGIES: THE PATIENT IS ALLERGIC TO: 1. BENADRYL. 2. ACETAMINOPHEN. PHYSICAL EXAMINATION: On examination, the visual acuity with correction is 20/25 in each eye. Slit lamp examination reveals an injected nasal pterygium extending 4 mm onto clear cornea in the right ey e. Applanation tonometry is 13 mmHg bilaterally. Examination of the retina is within normal limits. DIAGNOSIS: Pterygium, right eye. PLAN: Pterygium excision with mitomycin C application and rotating conjunctival graft, right eye. T he risks and alternatives to the surgery have been discussed with the patient as well as the potentia l for recurrence of pterygium despite best practices. The patient understands this and agrees to pro ceed with surgery. Dictated By: JAZMIN LEE/DINO Conf#: [id number] DID#: [id number]
[2018-09-28] VITALS (10 sets, daily range): BP systolic 91–127; BP diastolic 40–65; PULSE 62–75; RESP 15–28; Ht 144.8 cm; Wt 58.4 kg
[~2018-09-28] VITALS: Ht 144.8 cm; Wt 58.4 kg
[~2018-09-28] MED LIST: BALANCED SALT SOLN 15 ML OPH IRRIG ONE; BUPIVACAINE 0.5% (MPF) 30 ML INJ INJ ONE; CEPH500C PO; DOCU-144 PO; FENTAnyl 50 MCG/ML VIAL IV PRN; FENTAnyl 50 MCG/ML VIAL ONE; HYDR-3029 PO; HYDROmorphONE 1 MG/5 ML IV SYRINGE IV PRN; LABETALOL HCL 20MG INJ IV PRN; LIDOCAINE 1.5%/EPI MPF (SDV) 30 ML VIAL ONE; LIDOCAINE 2% (SDV) 5 ML INJ ONE; LIDOCAINE 2%/EPI (MDV) 20ML INJ INJ ONE; MEPERIDINE 25 MG INJ IV PRN; METOCLOPRAMIDE 10 MG INJ IV PRN; MIDAZOLAM 1 MG/ML 2 ML INJ ONE; MITOMYCIN 5 MG INJ OP ONE; MOXIFLOXACIN 0.5% 3 ML OPH OPER SCH; OMEP20CA16 PO; ONDA4TAB8 PO; ONDANSETRON 4 MG INJ IV PRN; PROPOFOL 20 ML ONE; SIMV40TA2 PO; SOD CHLORIDE 0.9% 1,000 ML IV SCH; TETRACAINE 0.5% 4 ML OPH RIGHT EYE ONE; TOBRAMYCIN/DEXAMETH 3.5 GM OPH OINT RIGHT EYE ONE
--- NOTE | 2018-09-28 10:38 | PREAC ---
Date/Time of Note Date/Time of Note DATE: 09/28/18 TIME: 10:36 Anesthesia Eval and Record Evaluation Time Pre-Procedure Interview DATE: 09/28/18 TIME: 10:36 Age 63 Sex female NPO: 8 hrs Preoperative diagnosis Rt eye pterygium Planned procedure Rt eye removal of pterygium Past Medical History Past Medical History: Includes Cardio: HTN, Dyslipidemia Endo: Diabetes GI: Morbid obesity Surgery & Anesthesia Issues No known issue Meds Anticoagulation: No Beta Reji within 24 hr: No Reason Beta Reji not given: Pt. not on B-Reji Discontinued Reported Medications Simvastatin* (Zocor*) 40 Mg Tablet, 40 MG PO QHS, #30 TAB 07/17/16 Discontinued Scripts Cephalexin* (Cephalexin*) 500 Mg Capsule, 500 MG PO Q8, #15 CAP Prov:MARIA DOLORES ALEXANDER MD 07/20/16 Ondansetron Hcl* (Zofran*) 4 Mg Tablet, 4 MG PO Q6H PRN for NAUSEA AND OR V OMITING, #20 TAB Prov:MARIA DOLORES ALEXANDER MD 07/20/16 Hydroxyzine Hcl* (Hydroxyzine Hcl*) 10 Mg Tablet, 10 MG PO Q6H PRN for ITCHING, #14 TAB Prov:MARIA DOLORES ALEXANDER MD 07/20/16 Omeprazole* (Omeprazole*) 20 Mg Capsule.dr, 20 MG PO DAILY, #30 CAP Prov:MARIA DOLORES ALEXANDER MD 07/20/16 Docusate Sodium* (Colace*) 100 Mg Capsule, 100 MG PO Q24H PRN for CONSTIPATION, #30 CAP Prov:MARIA DOLORES ALEXANDER MD 07/20/16 Current Medications Moxifloxacin HCl (Vigamox) 1 drop Q5 MIN X 3 OPER Last administered on 09/28/18at 09:47; Admin Dose 1 DROP; Start 09/28/18 at 09:00 Sodium Chloride 1,000 ml @ 25 mls/hr Q24H IV Last administered on 09/28/18at 09:47; Admin Dose 25 MLS/HR; Start 09/28/18 at 09:00 Meds reviewed: Yes Allergies Coded Allergies: diphenhydramine (Verified Allergy, Unknown, 09/28/18) acetaminophen (Verified Adverse Reaction, Unknown, 09/28/18) Allergies Reviewed: Yes Labs/Studies Labs Reviewed: Reviewed by anesthesiologist test: N/A Studies: ECG Pre-procedure Exam Last vitals Vital Signs Date Temp Pulse Resp B/P (MAP) Pulse Ox O2 O2 Flow FiO2 Time Delivery Rate 09/28/18 98.6 75 16 127/65 98 Room Air 09:05 (85) Airway: Adequate mouth opening, Adequate thyromental dist Mallampati: Mallampati II Teeth: Normal Lung: Normal Heart: Normal ASA Physical Status ASA physical status: 3 Emergency: None Planned Anesthetic General/MAC: MAC Planned Pain Management Parenteral pain med Pre-operative Attestations Prior to commencing anesthesia and surgery, the patient was re-evaluated, there was verification of: *The patient's identity *The results of appropriate recent lab work and preoperative vital signs *The above evaluation not changing prior to induction *Anesthetic plan, risk benefits, alternative and complications discussed with patient/family; questions answered; patient/family understands, accepts and wishes to proceed. DACIA SHEPHERD MD Sep 28, 2018 10:38
--- NOTE | 2018-09-28 11:34 | SIPON ---
Date/Time of Note Date/Time of Note DATE: 09/28/18 TIME: 11:33 Operative Report Preoperative Diagnosis pterygium od Postoperative Diagnosis same Operation/Procedure Performed pterygium excision with conjunctival flap od Surgeon jazmin espinoza chemistry research assistant none Anesthesia: MAC Estimated blood loss: none Transfusion Required none Specimen none Grafts/Implants none Complications none JAZMIN ESPINOZA MD Sep 28, 2018 11:34
--- NOTE | 2018-09-28 11:35 | PAC ---
Date/Time of Note Date/Time of Note DATE: 09/28/18 TIME: 11:35 Post-Anesthesia Notes Post-Anesthesia Note Last documented vital signs Vital Signs Date Temp Pulse Resp B/P (MAP) Pulse Ox O2 O2 Flow FiO2 Time Delivery Rate 09/28/18 98.6 75 16 127/65 98 Room Air 09:05 (85) Activity: WNL Respiratory function: WNL Cardiovascular function: WNL Mental status: Baseline Pain reasonably controlled: Yes Hydration appropriate: Yes Nausea/Vomiting absent: Yes Comments BP:134/67, P:76, Spo2:100%, T:99 DACIA SHEPHERD MD Sep 28, 2018 11:35
--- NOTE | 2018-09-28 15:23 | OPR ---
DATE OF OPERATION: 09/28/2018 PREOPERATIVE DIAGNOSIS: Visually significant pterygium, right eye. POSTOPERATIVE DIAGNOSIS: Visually significant pterygium, right eye. OPERATION PERFORMED: Pterygium excision with mitomycin C application and rotating conjunctival graft , right eye. SURGEON: Jazmin Hsu MD ANESTHESIOLOGIST: Dante Alonso MD DESCRIPTION OF PROCEDURE: The patient was prepped and draped in the usual sterile manner and then so me intravenous sedation was administered and the patient received local anesthetic using 1% lidocaine with epinephrine in a subconjunctival administration beneath the bed of the pterygium. Following th is, using Vannas scissors, the bed of the conjunctiva was incised approximately 3 to 4 mm posterior t o the corneoscleral limbus in the nasal quadrant. The subconjunctival Tenon's tissue was dissected t o the corneoscleral limbus and then using a curved blade was dissected free from the underlying corne a. Light cautery was applied to the bleeding vessels on the sclera in the surgical area until hemost asis was present. Following this, my Weck-Leanna sponge impregnated with mitomycin C 0.03% was applied to the bare sclera and left in place for 1 minute. After this was removed, the area was copiously ir rigated with balanced salt solution for an additional minute. Following this, some additional lidoca ine was administered to the superior conjunctival area and then the superior conjunctiva was disinser blessing from its insertion in the limbus and carried from the nasal quadrant to the superotemporal quadra nt. A tongue-like flap was created by incising the conjunctiva superiorly and then bringing the inci jasper back nasally. This conjunctival graft was then rotated on to clear cornea. Attention was then returned to the conjunctival defect in the nasal quadrant and Tisseel was applied to the scleral bed. The conjunctival graft was then rotated into place to cover the area that had previously been left with bare sclera. On top of the conjunctival graft, additional Tisseel was injected and left in plac e for a period of 2 minutes. Following this, area was irrigated. It was noted that the flap was sec urely in place. The speculum was removed. Maxitrol ointment was applied to the eye and a pressure p atch was applied. The patient then left the operating room in satisfactory condition. Dictated By: JAZMIN LEE/DINO Conf#: [id number] DID#: [id number]
== END | disposition home or self-care (01) ==
LOC: SDS 08:48
PROVIDERS: ATTEND Ophthalmology
DX: H11.001 Unspecified pterygium of right eye (principal); I10 Essential (primary) hypertension; E11.9 Type 2 diabetes mellitus without complications
CPT/HCPCS: 65426; J2250; J3010; J9280; Z7512; Z7610